=== PATIENT | male | born 1990 | race Caucasian/White ===

== ENCOUNTER 2018-05-22 19:32 | Observation (INO) | payer BC ==
[~2018-05-22 19:32] MED LIST: Iopamidol 370 76% 50 ML VIAL FS ONE
[2018-05-22] MEDS ORDERED: Dextrose 5% in Water 1,000 ML IV PRN (21:36)
[2018-05-22] MEDS ORDERED: Dextrose 50% Abboject 50 ML SYRINGE SLOW IVP PRN (21:36)
[2018-05-22] MEDS ORDERED: Ondansetron HCl/PF 4 MG/2 ML Vial IVP PRN (21:42)
[2018-05-22] MEDS ORDERED: Acetaminophen 1,000 MG in Premix Bag 1 BAG IVPB SCH (21:45)
[2018-05-22 22:15] VITALS: BMI 20.7
[2018-05-22] MEDS: Sodium Chloride 0.9% 1,000 ML IV SCH (23:00)
--- NOTE | 2018-05-22 23:08 | CT ---
CT CERVICAL SPINE WITH CORONAL AND SAGITTAL REFORMATIONS: CT THORACIC SPINE WITH CORONAL AND SAGITTAL REFORMATIONS: HISTORY: Neck pain and back pain. The patient was stepped on by a bull. FINDINGS: There are mild degenerative changes of the cervical and thoracic spine. No acute fracture or subluxa tion is identified. There is minimal anterior wedging of the superior endplate of the C6 vertebral b alea, likely chronic. No adjacent soft tissue swelling is seen. There is incomplete fusion of the po sterior arch of C1. These exams were performed with oral contrast. No free air is seen in the mediastinum. No contrast extravasation from the esophagus is noted. There is prominence of the wall of the cervical esophagus , which can be due to incomplete distention or wall thickening. If clinically indicated, endoscopy o r esophagram would be helpful. The visualized lung astudillo are clear. Incidental note is made of nonobstructing bilateral renal calculi. Discussed over the telephone with Dr. Abreu at 10:53 p.m. CODE CR POS: JENNIFER
[2018-05-23 04:02] LABS: #Basophils 0.1 thou/uL (0.0-0.2); #Eosinphils 0.2 thou/uL (0.0-0.7); #Lymphocytes 2.9 thou/uL (1.20-3.40); #Monocytes 0.8 thou/uL (0.11-0.59); #Neutrophils 4.5 thou/uL (1.40-6.50); %Basophils 0.8 % (0.0-1.0); %Eosinophils 2.8 % (0.0-10.0); %Lymphocytes 33.7 % (21.0-51.0); %Monocytes 9.3 % (0.0-10.0); %Neutrophils 53.4 % (42.0-75.0); Hemoglobin 15.3 g/dL (14.0-18.0); Mean Corpuscular Hemoglobin 31.7 pg (27.0-31.0); Mean Corpuscular Volume 93.1 fL (78.0-98.0); Mean Platelet Volume 6.9 fL (7.4-10.4); Platelet Count 208 thou/uL (130-400); RBC Distribution Width 12.2 % (11.5-14.5); Red Blood Cell (RBC) Count 4.82 mill/uL (4.70-6.10); White Blood Cell (WBC) Count 8.5 thou/uL (4.8-10.8)
[2018-05-23 04:08] LABS: Anion Gap 12 mmol/L (10-20); BUN (Urea Nitrogen) 8 mg/dL (8.9-20.6); Calc. Creatinine Clearance 126 mL/min (70-130); Calcium 9.2 mg/dL (7.8-10.44); Carbon Dioxide 27 mmol/L (22-29); Chloride 104 mmol/L (98-107); Estimated GFR-MDRD Greater than 90; Glucose 90 mg/dL (70-105); Potassium 3.8 mmol/L (3.5-5.1); Sodium 139 mmol/L (136-145)
--- NOTE | 2018-05-23 04:25 | HP ---
DATE OF ADMISSION: 05/22/2018 ADMITTING PHYSICIAN: Dr. Abreu CONSULTING PHYSICIAN: Dr. Montesinos. 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 He co ntinued his regular activities. Today, he went to a chiropractor due to neck pain. She told him she thought he had a fractured jaw and sent him to an outside [facility] ER. At the [facility] ER, he had a workup which identified a cervical spine fracture, possible fracture of the nasal bone, poss ible esophageal thickening, possible T1 fracture, and soft tissue contusion. He was placed in the [facility] collar and transferred to [place] for higher level of care. [facility] by Trauma Services. Dr. Montesinos, Neurosurgery was consulted. PAST MEDICAL HISTORY: None. PAST SURGICAL HISTORY: Left orthopedic knee surgery. SOCIAL HISTORY: Tobacco, half pack of cigarettes a day. Alcohol, occasionally. Drugs, none. CURRENT MEDICATIONS: None. ALLERGIES: No known drug allergies. LABORATORY DATA: CBC: WBC 9.8, RBC 5.56, hemoglobin 17.2, hematocrit 49.6, platelets 213. Chemistr y: Sodium 136, potassium 3.5, chloride 100, glucose 108, calcium 9.6, BUN 8, creatinine 1.0. REVIEW OF SYSTEMS: CONSTITUTIONAL: Patient denies chills, fever, recent weight loss or generalized malaise. HEENT: Complains of swelling and pain to the right mandible area, abrasions to right side of neck, swelling to right side of neck. Posterior neck tenderness and difficulty swallowing. CARDI OVASCULAR: Denies chest pain, palpitations or syncope. RESPIRATORY: Denies cough, shortness of breath or chest pain. GASTROINTESTINAL: Denies abdominal p ain, nausea, vomiting, diarrhea or constipation. GENITOURINARY: Denies dysuria or hematuria. MUSCU LOSKELETAL: Denies pain or injury. SKIN: Denies rash or skin changes. 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 HEME/LYMPHATIC: Denies abnorma l bleeding. PHYSICAL EXAMINATION: CONSTITUTIONAL: Well-nourished, well-developed male lying in bed in no acute distress. HEENT: Cervical collar in place. Tenderness to palpation in midline cervical spine. Swelling to ri ght side of the neck with abrasion on skin. No active bleeding. Trachea midline. Pupils equal, rou nd and reactive. PULMONARY: Bilateral breath sounds clear. No respiratory distress. Chest movement symmetrical. CARDIOVASCULAR: Regular rate and rhythm. Heart sounds normal. ABDOMEN: Soft, nontender, nondistended. Pelvis stable. EXTREMITIES: Moves all extremities. Cap refill brisk. 2+ pulses. Neurovascular intact. NEUROLOGIC: GCS 15. Awake, alert and oriented x3. Strength 5/5 in all extremities. No focal defic it noted. ASSESSMENT: 1. Blunt trauma to neck status post stepped on by a bull. 2. Soft tissue contusion right neck and mandibular area. 3. C-spine fracture identified at outside facility. 4. Acute traumatic pain. PLAN: 1. Repeat C and T-spine. 2. Obtain a swallow study to evaluate swallowing difficulty. 3. N.p.o., IV fluids, IV analgesia. 4. Dr. Montesinos, Neurosurgery, consulted. Appreciate recommendations. 5. [place] collar at all times. 6. Pepcid for gastritis prophylaxis. 7. SCDs for DVT prophylaxis. Patient was reviewed with Dr. Abreu at time of admission. Dr. Abreu agrees with plan.
[2018-05-23 04:32] VITALS: TEMP 97.8
[2018-05-23] MEDS: Sodium Chloride 0.9% 1,000 ML IV SCH (06:43)
[2018-05-23 07:53] VITALS: BP 144/89
[2018-05-23] MEDS ORDERED: Famotidine/PF 20 mg/2ml Vial SLOW IVP SCH (09:00)
--- NOTE | 2018-05-23 09:00 | CON ---
DATE OF CONSULTATION: 05/23/2018 This is a 50 minute consult, greater than 50% of the time was spent counseling and coordinating ty nt's care. The remainder of the exam was spent reviewing the patient's medical records and appropria te imaging studies. CHIEF COMPLAINT: Status post being stepped on by a bull with right-sided neck pain. HISTORY OF PRESENT ILLNESS: Mr. Grant is a 27-year-old male who was involved in a trauma in which he was riding a bull and was bucked off. The bull stepped on the right lateral aspect of the patient 's neck. He began to experience immediate swallowing difficulties well as posterior neck pain. He w as seen [facility] and was later transferred to [facility] for high er acuity of care. In relation to Neurosurgery, the patient notes significant tenderness to palpatio n into the posterior cervical spine and some radiation of pain into the right scapula. He has not no ticed any weakness in either of the extremities. He denies dropping objects more frequently, fine mo tor incoordination or burning in the hands. He states overall today he is feeling better. Review of patient's cervical and thoracic spine CT show no concerning acute fracture. No prevertebral thickne ss or obvious traumatic injuries. PHYSICAL EXAMINATION: The patient is awake, alert, and appropriate. GCS is 15. He is up walking to the bathroom to brush his teeth. He is wearing a well-fitting [place] collar. He has significant ten derness to palpation in the posterior aspect of the cervical spine. He has full strength in the bila teral upper and bilateral lower extremities with no worrisome myelopathic features on exam. He walks with a non-antalgic gait. IMPRESSION: Status post trauma involving a bull, now with posterior neck pain. PLAN: I discussed the patient's case and imaging with Dr. Montesinos. At this time, there is no role fo r neurosurgical intervention as far as the surgery is concerned. Given the significant amount of ten derness in the posterior aspect of the cervical spine, he may have some ligamentous injury versus whi plash versus cervical neck strain. Nonetheless, I would like him to wear his collar at all times. I will order a [place] collar for showers. From our standpoint, the patient is neurologically stable. We will set up a followup appointment in the next 10-14 days with upright cervical AP flexion and e xtension x-rays. The patient's mother was updated at bedside. They understand to call the office wi th questions or concerns or changes in patient's neurologic exam, otherwise they will follow up as sc heduled on an outpatient basis. Again, from Neurosurgery standpoint, the patient is stable for disch arge.
[2018-05-23] MEDS ORDERED: Acetaminophen 500 MG TAB PO PRN (09:29)
[2018-05-23] MEDS ORDERED: Ibuprofen 800 MG TAB PO PRN (09:29)
--- NOTE | 2018-05-23 11:39 | DIS ---
DATE OF ADMISSION: 05/22/2018 DATE OF DISCHARGE: 05/23/2018 ADMITTING PHYSICIAN: Dr. Abreu. DISCHARGING PHYSICIAN: Dr. Jose Logan. ADMITTING DIAGNOSES: 1. Blunt trauma to the neck. The patient was stepped on by a bull. 2. Cervical spine fracture. DISCHARGE DIAGNOSES: 1. Blunt trauma to the neck. The patient was stepped on by a bull. 2. Cervical spine fracture. CONSULTANTS: Dr. Hemal Montesinos with Neurosurgery. 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 He was seen in the [facility] where a CT scan of the cer vical spine was obtained, which was suspicious for cervical spine fracture. The patient was transfer red to [facility]. The patient was evaluated by the Trauma Team as well as a Neurosurgical servi ce. Prior CT scan of the cervical spine revealed superior endplate C6 vertebral body fracture. The patient on examination was still having cervical spine pain in the midline. His cervical spine was t herefore maintained in a C-collar at the recommendation of Neurosurgery. No surgical intervention wa s warranted. The patient has done well during this observation. He ambulates with minimum difficult y. He has 5/5 muscle strength in both upper and lower extremities bilaterally. [place] coma scale i s 15. This morning, he was found without his C-collar against advice. He was again advised to maint ain the C-collar as recommended by Neurosurgery. DISCHARGE INSTRUCTIONS: He will be discharged home today with the following instructions: 1. He follows up with Neurosurgery in 10-14 days. 2. He is advised to wear the C-collar at all times. To this end, he is provided with an [place] colla r, which he wears most of the time. This will be changed with a [place] collar for showers. 3. He requires no further follow up from this Trauma Surgery standpoint except for as needed. 4. He may take Tylenol 1000 mg p.o. q.6 hours p.r.n. pain and alternating this with ibuprofen 800 mg p.o. q.8 hours p.r.n. pain. The above instructions were given to the patient, who indicates understanding of the information give n. I have answered his questions.
== END 2018-05-23 10:49 | disposition home or self-care (01) ==
LOC: INTOOBSV 20:15 → SJJU 20:15
PROVIDERS: ADMIT Surgery; ATTEND Surgery
DX: S12.9XXA Fracture of neck, unspecified, initial encounter (principal); S10.83XA Contusion of other specified part of neck, initial encounter; S00.83XA Contusion of other part of head, initial encounter; G89.11 Acute pain due to trauma; F17.210 Nicotine dependence, cigarettes, uncomplicated; W55.29XA Other contact with cow, initial encounter; Y99.0 Civilian activity done for income or pay
CPT/HCPCS: 36415; 72125; 72128; 80048; 85025; 96374; 96375; 96376; G0378; J0131; J2270; J2405

== ENCOUNTER 2019-06-13 10:54 | Emergency (ER) | payer BC ==
[2019-06-13] MEDS ORDERED: Fentanyl 100 MCG/2 ML VIAL ONE (11:11)
[2019-06-13] MEDS ORDERED: Ondansetron PF 4 MG/2 ML Vial ONE (11:11)
[2019-06-13 11:29] LABS: #Basophils 0.1 thou/uL (0.0-0.2); #Eosinphils 0.4 thou/uL (0.0-0.7); #Lymphocytes 2.6 thou/uL (1.20-3.40); #Monocytes 0.9 thou/uL (0.11-0.59); #Neutrophils 7.9 thou/uL (1.40-6.50); %Basophils 0.8 % (0.0-1.0); %Eosinophils 3.3 % (0.0-10.0); %Monocytes 7.3 % (0.0-10.0); %Neutrophils 66.6 % (42.0-75.0); Hemoglobin 16.1 g/dL (14.0-18.0); Mean Corpuscular HGB CONC 33.5 g/dL (32.0-36.0); Mean Corpuscular Hemoglobin 29.9 pg (27.0-31.0); Mean Corpuscular Volume 89.2 fL (78.0-98.0); Mean Platelet Volume 7.5 fL (7.4-10.4); Platelet Count 281 thou/uL (130-400); RBC Distribution Width 11.9 % (11.5-14.5); Red Blood Cell (RBC) Count 5.39 mill/uL (4.70-6.10); White Blood Cell (WBC) Count 11.8 thou/uL (4.8-10.8)
[2019-06-13 11:50] LABS: ALT (SGPT) 12 U/L (8-55); AST (SGOT) 14 U/L (5-34); Albumin 4.5 g/dL (3.5-5.0); Alkaline Phosphatase 77 U/L (40-150); Anion Gap 15 mmol/L (10-20); BUN (Urea Nitrogen) 14 mg/dL (8.9-20.6); Bilirubin, Total 0.4 mg/dL (0.2-1.2); Calc. Creatinine Clearance 0 mL/min (70-130); Calcium 9.6 mg/dL (7.8-10.44); Carbon Dioxide 20 mmol/L (22-29); Chloride 104 mmol/L (98-107); Estimated GFR-MDRD 84; Globulin 2.6 g/dL (2.4-3.5); Glucose 120 mg/dL (70-105); Lipase 12 U/L (8-78); Potassium 3.7 mmol/L (3.5-5.1); Protein, Total 7.1 g/dL (6.0-8.3); Sodium 135 mmol/L (136-145)
--- NOTE | 2019-06-13 13:13 | CT ---
EXAM: CT ABDOMEN AND PELVIS HISTORY: Sudden onset right lower quadrant pain. COMPARISON: None. Procedure: Multiple contiguous axial images were obtained and a CT of the abdomen and pelvis with IV contrast. C oronal reformats were performed. FINDINGS: Lower Chest: within normal limits. Vessels: Normal caliber aorta Heart: Normal heart size Abdomen: Portal vein:Patent Gallbladder: No calcified gallstones. Normal caliber wall. Liver: within normal limits. Pancreas: within normal limits. Spleen: within normal limits. Adrenals: within normal limits. Kidneys: Symmetric enhancement the kidneys. Multiple nonobstructing calculi in the left renal pelvis. [place] Tender left renal pelvic calculus measures 0.4 cm. Moderate right-sided obstructive uropathy. There are multiple calcifications in the proximal to mid right ureter. [place] calcu li measure 0.5 and 0.7 cm. The distal right ureter is decompressed. Peritoneum: No ascites or free air, no fluid collection. Bowel: Limited evaluation due to technique. No evidence of bowel obstruction. Ileocecal junction is u nremarkable. Normal caliber air-filled appendix. Unremarkable colon. Mesentery and Retroperitoneum: No enlarged mesenteric or retroperitoneal lymph nodes. Abdominal Wall: within normal limits. Pelvis: Reproductive Organs: Possible small right-sided hydrocele, incompletely evaluated. Pelvis: within normal limits. Bladder: within normal limits. Bones: within normal limits. IMPRESSION: 1. Moderate right-sided obstructive uropathy secondary to multiple calculi in the proximal to mid rig ht ureter. Urology consultation is recommended 2. Nonobstructing calculi in the left renal pelvis.
[2019-06-13] MEDS ORDERED: Ketorolac Tromethamine 30 MG/ML VIAL ONE (13:41)
[2019-06-13] MEDS ORDERED: Iopamidol 370 76% 50 ML VIAL FS ONE (13:57)
[2019-06-13] MEDS ORDERED: ISOVUE-370 76%-LOCM 1 ML ONE (13:57)
[2019-06-13 15:25] LABS: Bacteria/HPF None Seen HPF (None Seen); Bilirubin Negative (Negative); Blood, Urine 2+ (Negative); Clarity Clear (Clear); Glucose, Urine (Dipstick) Normal (Negative); Leukocyte 75 Leu/uL (Negative); Nitrite Negative (Negative); Protein, Urine (Dipstick) 10 mg/dL (Neg-Trace); RBC/HPF Greater than 50 HPF (0-3); Squamous Epithelial None Seen HPF (0-3); Urobilinogen Normal mg/dL (Less than 2)
== END 2019-06-13 16:10 | disposition home or self-care (01) ==
LOC: ERS 10:54
DX: N20.1 Calculus of ureter (principal)
CPT/HCPCS: 74177; 80053; 81003; 81015; 83690; 85025; 87086; 96361; 96374; 96375; J1885; J2405; J3010; Q9966; Q9967

== ENCOUNTER 2019-07-17 07:25 | Emergency (ER) | payer BC, SELFPAY ==
[2019-07-17] MEDS ORDERED: Fentanyl 100 MCG/2 ML VIAL ONE (07:45)
[2019-07-17] MEDS ORDERED: Ketorolac Tromethamine 30 MG/ML VIAL ONE (07:46)
[2019-07-17] MEDS ORDERED: Ondansetron PF 4 MG/2 ML Vial ONE (07:46)
[2019-07-17 07:48] LABS: #Basophils 0.1 thou/uL (0.0-0.2); #Eosinphils 0.2 thou/uL (0.0-0.7); #Lymphocytes 2.1 thou/uL (1.20-3.40); #Monocytes 0.7 thou/uL (0.11-0.59); #Neutrophils 10.2 thou/uL (1.40-6.50); %Basophils 0.6 % (0.0-1.0); %Eosinophils 1.5 % (0.0-10.0); %Lymphocytes 15.9 % (21.0-51.0); Mean Corpuscular HGB CONC 34.3 g/dL (32.0-36.0); Mean Corpuscular Hemoglobin 31.1 pg (27.0-31.0); Mean Corpuscular Volume 90.5 fL (78.0-98.0); Mean Platelet Volume 7.1 fL (7.4-10.4); Platelet Count 273 thou/uL (130-400); RBC Distribution Width 11.6 % (11.5-14.5); Red Blood Cell (RBC) Count 5.14 mill/uL (4.70-6.10); White Blood Cell (WBC) Count 13.2 thou/uL (4.8-10.8)
[2019-07-17 08:28] LABS: ALT (SGPT) 13 U/L (8-55); AST (SGOT) 23 U/L (5-34); Albumin 4.8 g/dL (3.5-5.0); Alkaline Phosphatase 77 U/L (40-150); Anion Gap 14 mmol/L (10-20); BUN (Urea Nitrogen) 12 mg/dL (8.9-20.6); Bilirubin, Total 0.6 mg/dL (0.2-1.2); CK (CPK) 541 U/L (30-200); Calc. Creatinine Clearance 0 mL/min (70-130); Calcium 10.1 mg/dL (7.8-10.44); Carbon Dioxide 25 mmol/L (22-29); Chloride 99 mmol/L (98-107); Estimated GFR-MDRD 67; Globulin 2.7 g/dL (2.4-3.5); Glucose 112 mg/dL (70-105); Lipase 9 U/L (8-78); Potassium 3.8 mmol/L (3.5-5.1); Protein, Total 7.5 g/dL (6.0-8.3); Sodium 134 mmol/L (136-145)
--- NOTE | 2019-07-17 09:01 | RAD ---
ABDOMEN ONE VIEW: HISTORY: Right-sided flank pain. COMPARISON: CT abdomen and pelvis from 06/13/2019. FINDINGS: Several left renal calculi are noted. There is at least one probable calculus overlying the right L4 transverse process region. On the previous study there were two right-sided ureteral calculi. IMPRESSION: 1. Evidence for right sided ureteral calculus at L4. 2. A second calculus is not definitely seen on this study but may overlie the sacrum and by obscured. 3. Several nonobstructing left renal calculi. 4. No large or small bowel obstruction or overt free air. POS: OFF
[2019-07-17 12:48] LABS: Bilirubin Negative (Negative); Blood, Urine Moderate (Negative); Glucose, Urine (Dipstick) Negative (Negative); Leukocyte Small (Negative); Nitrite Negative (Negative); Protein, Urine (Dipstick) 30 mg/dL (Neg-Trace); Urobilinogen 0.2 mg/dL (Less than 2)
[2019-07-17 12:49] LABS: Clarity Clear (Clear)
[2019-07-17 12:53] LABS: Mucous/LPF Rare LPF (<2+); RBC/HPF Greater than 50 HPF (0-3); Squamous Epithelial 0-3 HPF (0-3); WBC/HPF Greater than 50 HPF (0-3)
[2019-07-17 13:02] LABS: Bacteria/HPF None Seen HPF (None Seen); Calcium Oxalate Crystals 1+ HPF (None Seen); Sperm/HPF Rare HPF (None Seen)
--- NOTE | 2019-07-17 13:47 | CT ---
CT ABDOMEN AND PELVIS: 07/17/2019 PROVIDED CLINICAL HISTORY: Kidney stones with pain. COMPARISON: 06/13/2019 FINDINGS: The visualized lung bases are free of significant opacity. Multiple small, nonobstructing, left-sided renal calculi are redemonstrated, similar to the prior sherie dy. There is severe right hydronephrosis and right hydroureter on the basis of a 7 mm ureteral calcul us at the level of L3-L4 and a 7 to 8 mm calculus at the level of L5. The more distal calculus has pr ogressed slightly distally with respect to the prior examination. The more proximal calculus appears not significantly changed in position. The solid abdominal organs are suboptimally evaluated in the absence of IV contrast material but demo nstrate an otherwise unremarkable unenhanced CT appearance. There is no bowel dilatation, inflammatory fat stranding, free fluid or free air apparent. The osseous structures demonstrate no concerning lytic or blastic lesions. IMPRESSION: 1. Obstructing right ureteral calculi with minimal to no change with respect to 06/13/2019. 2. Severe right hydroureteronephrosis. 3. Nonobstructing left nephrolithiasis. POS: TPC
== END 2019-07-17 15:12 | disposition home or self-care (01) ==
LOC: ERS 07:25
DX: N13.2 Hydronephrosis with renal and ureteral calculous obstruction (principal); F17.210 Nicotine dependence, cigarettes, uncomplicated
CPT/HCPCS: 74018; 74176; 80053; 81003; 81015; 82550; 83690; 85025; 87086; 96361; 96374; 96375; J1885; J2405; J3010

== ENCOUNTER 2019-09-09 03:42 | Emergency (ER) | payer SELFPAY ==
[2019-09-09] MEDS ORDERED: Ondansetron ODT 4 MG TAB ONE (03:51)
[2019-09-09] MEDS ORDERED: Morphine 4 MG/ML VIAL ONE (04:10)
[2019-09-09] MEDS ORDERED: Ondansetron PF 4 MG/2 ML Vial ONE (04:12)
[2019-09-09] MEDS ORDERED: Ketorolac Tromethamine 30 MG/ML VIAL ONE (04:25)
[2019-09-09 04:37] LABS: #Basophils 0.1 thou/uL (0.0-0.2); #Eosinphils 0.4 thou/uL (0.0-0.7); #Lymphocytes 1.9 thou/uL (1.20-3.40); #Monocytes 0.6 thou/uL (0.11-0.59); #Neutrophils 4.8 thou/uL (1.40-6.50); %Eosinophils 5.4 % (0.0-10.0); %Lymphocytes 24.7 % (21.0-51.0); %Monocytes 8.1 % (0.0-10.0); %Neutrophils 60.8 % (42.0-75.0); Hemoglobin 14.7 g/dL (14.0-18.0); Mean Corpuscular HGB CONC 33.9 g/dL (32.0-36.0); Mean Corpuscular Hemoglobin 30.8 pg (27.0-31.0); Mean Platelet Volume 7.5 fL (7.4-10.4); Platelet Count 245 thou/uL (130-400); RBC Distribution Width 11.3 % (11.5-14.5); Red Blood Cell (RBC) Count 4.77 mill/uL (4.70-6.10); White Blood Cell (WBC) Count 7.9 thou/uL (4.8-10.8)
[2019-09-09 05:02] LABS: ALT (SGPT) 16 U/L (8-55); AST (SGOT) 18 U/L (5-34); Albumin 4.4 g/dL (3.5-5.0); Alkaline Phosphatase 76 U/L (40-110); Anion Gap 9 mmol/L (10-20); BUN (Urea Nitrogen) 7 mg/dL (8.9-20.6); Bilirubin, Total 0.4 mg/dL (0.2-1.2); Calc. Creatinine Clearance 0 mL/min (70-130); Calcium 9.5 mg/dL (7.8-10.44); Carbon Dioxide 29 mmol/L (22-29); Chloride 101 mmol/L (98-107); Estimated GFR-MDRD 87; Globulin 2.3 g/dL (2.4-3.5); Glucose 82 mg/dL (70-105); Lipase 19 U/L (8-78); Potassium 3.3 mmol/L (3.5-5.1); Protein, Total 6.7 g/dL (6.0-8.3); Sodium 136 mmol/L (136-145)
[2019-09-09] MEDS ORDERED: Naproxen 500 MG TAB ONE (05:39)
[2019-09-09] MEDS ORDERED: HYDROcodone/Acetaminophen 5/325 mg Tablet ONE (05:39)
--- NOTE | 2019-09-09 08:33 | CT ---
PRELIMINARY REPORT/[facility]/EMERGENCY AFTER HOURS PROCEDURE: PROCEDURE INFORMATION: Exam: CT Abdomen And Pelvis Without Contrast Exam date and time: 09/09/2019 4:50 AM Clinical history: 28 years old, male; Abdominal pain; Patient HX: Er 1. PT states "i have kidney ston es" PT states he cannot urinate C/O right flank pain and lower abd pain C/O nausea. TECHNIQUE: Imaging protocol: Computed tomography of the abdomen and pelvis without contrast. COMPARISON: No relevant prior studies available. FINDINGS: Liver: There are no focal liver lesions identified. Gallbladder and bile ducts: The gallbladder is normal. There is no evidence of biliary ductal dilatio n. Pancreas: The pancreas appears normal. No ductal dilatation. Spleen: The spleen is normal. Adrenals: The adrenal glands are normal. Kidneys and ureters: There is a 7 x 4 x 10 mm and a 8 x 6 x 11 mm calculus within the proximal and di stal right ureter with associated severe right hydroureteronephrosis. There are punctate left renal p elvic calcifications as well. Stomach and bowel: The stomach is normal. The duodenum is unremarkable. There is no evidence of intes tinal perforation or obstruction. Appendix: No evidence of appendicitis. Intraperitoneal space: Unremarkable. No free air. No significant fluid collection. Vasculature: Unremarkable. No abdominal aortic aneurysm. Lymph nodes: Unremarkable. No enlarged lymph nodes. Bladder: The bladder is normal. Reproductive: The prostate gland and seminal vesicles are normal. Bones/joints: Unremarkable. No acute fracture. Soft tissues: Unremarkable. Other findings: There is an irregular fluid collection consistent in appearance with an abscess. IMPRESSION: There is a 7 x 4 x 10 mm and a 8 x 6 x 11 mm calculus within the proximal and distal right ureter wit h associated severe right hydroureteronephrosis. Thank you for allowing us to participate in the care of your patient. Dictated and Authenticated by: Diallo Siu MD 09/09/2019 5:07 AM Central Time ([place] & [place]) FINAL REPORT ABDOMEN CT WITHOUT CONTRAST PELVIC CT WITHOUT CONTRAST: HISTORY: Known renal calculi. Pain. COMPARISON: 07/17/2019. FINDINGS: This report is in agreement with the preliminary report by [facility]. Right-sided hydronephrosis involving the intra- and extrarenal collecting system secondary to 2 separate ureteral calculi as described in the preliminary report by [facility]. The degree of hydroureteral nephrosis is similar to the previous exa mination. Additional nonobstructing calcifications in the left intrarenal collecting system are note d. POS: JENNIFER
== END 2019-09-09 06:40 | disposition home or self-care (01) ==
LOC: ERS 03:42
DX: N13.2 Hydronephrosis with renal and ureteral calculous obstruction (principal); Z87.442 Personal history of urinary calculi; F17.210 Nicotine dependence, cigarettes, uncomplicated; Z79.891 Long term (current) use of opiate analgesic
CPT/HCPCS: 36415; 74176; 80053; 83690; 85025; 96361; 96374; 96375; J1885; J2270; J2405; Q0162

== ENCOUNTER 2021-04-22 18:15 | Inpatient (IN) | payer OTHER, SELFPAY ==
[2021-04-22] MEDS ORDERED: Morphine 4 MG/ML VIAL ONE (19:28)
[2021-04-22] MEDS ORDERED: Ondansetron PF 4 MG/2 ML Vial ONE (19:32)
[2021-04-22] MEDS ORDERED: Ketamine 50 MG/ML (10ML VIAL) ONE (20:30)
[2021-04-22] MEDS ORDERED: Midazolam HCl 2 mg/2 ml Vial ONE (21:05)
[2021-04-22] MEDS ORDERED: Morphine 4 MG/ML VIAL SLOW IVP PRN ×2 (22:35)
[2021-04-22] MEDS ORDERED: Ondansetron ODT 4 MG TAB SL PRN (22:45)
[2021-04-22] MEDS ORDERED: Ondansetron PF 4 MG/2 ML Vial IVP PRN (22:45)
[2021-04-22] MEDS ORDERED: Lactated Ringer's 1,000 ML IV SCH (22:45)
[2021-04-22 23:01] VITALS: BMI 22.1
[2021-04-22] MEDS ORDERED: hydrALAZINE 20 MG/ML VIAL SLOW IVP PRN (23:47)
[2021-04-22] MEDS ORDERED: Morphine 2 MG/ML VIAL SLOW IVP PRN (23:49)
[2021-04-22] MEDS ORDERED: Cyclobenzaprine 10 MG TAB PO PRN (23:49)
[2021-04-22] MEDS ORDERED: traMADol HCl 50 MG TAB PO PRN (23:49)
[2021-04-23] MEDS ORDERED: Ibuprofen 200 MG TAB PO PRN (00:01)
[2021-04-23] MEDS: Acetaminophen 325 MG TAB PO SCH ×5 (01:32→23:50)
[2021-04-23] MEDS: traMADol HCl 50 MG TAB PO SCH ×3 (01:33→11:33)
[2021-04-23] MEDS: Sodium Chloride 0.9% 1,000 ML IV SCH ×3 (01:34→21:31)
[2021-04-23] MEDS ORDERED: Calcium Carbonate 500 MG ChewTAB PO SCH (02:00)
[2021-04-23 06:46] LABS: #Basophils 0.1 thou/uL (0.0-0.2); #Eosinphils 0.8 thou/uL (0.0-0.7); #Lymphocytes 3.9 thou/uL (1.20-3.40); #Neutrophils 5.7 thou/uL (1.40-6.50); %Basophils 0.7 % (0.0-1.0); %Eosinophils 6.6 % (0.0-10.0); %Lymphocytes 33.8 % (21.0-51.0); %Monocytes 8.8 % (0.0-10.0); %Neutrophils 50.1 % (42.0-75.0); Hemoglobin 14.3 g/dL (14.0-18.0); Mean Corpuscular HGB CONC 33.8 g/dL (32.0-36.0); Mean Corpuscular Hemoglobin 31.1 pg (27.0-31.0); Mean Corpuscular Volume 92.2 fL (78.0-98.0); Mean Platelet Volume 7.8 fL (7.4-10.4); Platelet Count 247 thou/uL (130-400); RBC Distribution Width 11.4 % (11.5-14.5); White Blood Cell (WBC) Count 11.4 thou/uL (4.8-10.8)
[2021-04-23 07:10] LABS: Anion Gap 12 mmol/L (10-20); BUN (Urea Nitrogen) 10 mg/dL (8.9-20.6); Calc. Creatinine Clearance 103 mL/min (70-130); Calcium 8.6 mg/dL (7.8-10.44); Carbon Dioxide 26 mmol/L (22-29); Chloride 105 mmol/L (98-107); Glucose 82 mg/dL (70-105); Potassium 4.2 mmol/L (3.5-5.1); Sodium 139 mmol/L (136-145)
[2021-04-23 07:11] LABS: INR-International Normal Ratio 0.9; PTT 28.4 sec (22.9-36.1); Prothrombin Time 12.6 sec (12.0-14.7)
[2021-04-23] MEDS ORDERED: Clindamycin/D5W 900 MG in Premix Bag 1 BAG IVPB SCH (07:15)
[2021-04-23] MEDS: Gabapentin 300 MG CAP PO SCH ×3 (08:47→21:31)
[2021-04-23 09:03] LABS: SARS-CoV-2 NAA Rapid Test Not Detected (NotDetected)
[2021-04-23] MEDS: Polyethylene Glycol 3350 17 GM Packet PO SCH (09:49)
[2021-04-23] MEDS ORDERED: Clindamycin/D5W 900 mg/50 ml Premix Bag ONE (14:03)
[2021-04-23] MEDS ORDERED: Midazolam HCl 2 mg/2 ml Vial ONE (14:04)
[2021-04-23] MEDS ORDERED: Fentanyl 100 MCG/2 ML VIAL ONE ×2 (14:04→14:36)
[2021-04-23] MEDS ORDERED: Ondansetron PF 4 MG/2 ML Vial ONE (14:45)
[2021-04-23] MEDS ORDERED: Bupivacaine PF 0.5% 30 ML VIAL ONE (14:45)
[2021-04-23] MEDS ORDERED: Dexamethasone 20 MG/5 ML VIAL ONE (14:45)
[2021-04-23] MEDS ORDERED: PROPOFOL 200 MG/20 ML VIAL ONE (14:45)
[2021-04-23] MEDS ORDERED: Ketorolac Tromethamine 30 MG/ML VIAL ONE (14:45)
[2021-04-23] MEDS ORDERED: Lidocaine 1% PF 5 ML VIAL ONE (14:45)
[2021-04-23] MEDS ORDERED: Fentanyl 100 MCG/2 ML VIAL IV PRN (14:48)
[2021-04-23] MEDS ORDERED: Promethazine HCl 25 MG/ML VIAL IM PRN ×2 (15:00→16:05)
[2021-04-23] MEDS ORDERED: Ketorolac Tromethamine 30 MG/ML VIAL IVP PRN (15:00)
[2021-04-23] MEDS ORDERED: Zolpidem Tartrate 5 MG TAB PO PRN (15:00)
[2021-04-23] MEDS ORDERED: Ropivacaine 0.2% 550 ML 550 ML NERVE BLCK SCH (15:00)
[2021-04-23] MEDS ORDERED: traMADol HCl 50 MG TAB PO PRN ×2 (15:00)
[2021-04-23] MEDS ORDERED: HYDROcodone/Acetaminophen 10/325 mg Tablet PO PRN ×2 (15:00)
[2021-04-23] MEDS ORDERED: Ondansetron PF 4 MG/2 ML Vial IVP PRN (15:00)
[2021-04-23] MEDS ORDERED: PACU-Morphine 4MG/ML VIAL SLOW IVP PRN (16:05)
[2021-04-23] MEDS ORDERED: Promethazine HCl 25 MG/ML VIAL IVPB PRN (16:05)
[2021-04-23] MEDS ORDERED: HYDROmorphone 2 MG/ML VIAL SLOW IVP PRN (16:05)
[2021-04-23] MEDS ORDERED: Ondansetron HCl/PF 4 MG/2 ML Vial IVP PRN (16:05)
[2021-04-23] MEDS ORDERED: Gabapentin 100 MG CAP PO SCH (21:30)
[2021-04-23] MEDS: Clindamycin/D5W 900 MG in Premix Bag 1 BAG IVPB SCH (21:54)
[2021-04-24] MEDS: Clindamycin/D5W 900 MG in Premix Bag 1 BAG IVPB SCH (05:11)
[2021-04-24] MEDS: Acetaminophen 325 MG TAB PO SCH (05:11)
[2021-04-24] MEDS: Sodium Chloride 0.9% 1,000 ML IV SCH (05:43)
[2021-04-24 07:33] VITALS: TEMP 97.9
[2021-04-24] MEDS ORDERED: Gabapentin 100 MG CAP PO SCH (09:00)
[2021-04-24] MEDS ORDERED: Ibuprofen 200 MG TAB PO SCH (09:00)
[2021-04-24] MEDS: Polyethylene Glycol 3350 17 GM Packet PO SCH (09:23)
[2021-04-24] MEDS ORDERED: Acetaminophen 325 MG TAB PO SCH (12:00)
[2021-04-24 12:01] VITALS: BP 138/66
== END 2021-04-24 15:00 | disposition home or self-care (01) | DRG 494 ==
LOC: ERS 18:15 → ONC 20:32 → SURG A 04-23 17:24
PROVIDERS: ADMIT Surgery; ATTEND Surgery
PROC: 0QSJ04Z Reposition Right Fibula with Internal Fixation Device, Open Approach (ICD-10-PCS; principal; 2021-04-23)
PROC: 0QSL04Z Reposition Right Tarsal with Internal Fixation Device, Open Approach (ICD-10-PCS; 2021-04-23)
DX: S82.851A Displaced trimalleolar fracture of right lower leg, initial encounter for closed fracture (principal); S82.831A Other fracture of upper and lower end of right fibula, initial encounter for closed fracture; F17.210 Nicotine dependence, cigarettes, uncomplicated; Z88.0 Allergy status to penicillin; V80.010A Animal-rider injured by fall from or being thrown from horse in noncollision accident, initial encounter; Y92.89 Other specified places as the place of occurrence of the external cause
CPT/HCPCS: 27840; 36415; 70486; 76000; 80048; 85025; 85610; 85730; 96374; 96375; 99152; 99153; A4306; C1713; J1100; J1885; J2250; J2270; J2405; J2704; J2795; J3010; J3490; S0020; U0002; U0003; U0005

== ENCOUNTER 2022-12-21 16:09 | Outpatient (CLI) | payer OTHER ==
[2022-12-21 18:03] LABS: INR-International Normal Ratio 0.9; PTT 26.2 sec (22.0-33.0); Prothrombin Time 9.9 sec (9.5-12.1)
[2022-12-21 18:05] LABS: Anion Gap 16 mmol/L (10-20); BUN (Urea Nitrogen) 21 mg/dL (8.9-20.6); Calc. Creatinine Clearance 0 mL/min (70-130); Calcium 9.9 mg/dL (7.8-10.44); Carbon Dioxide 26 mmol/L (22-29); Chloride 103 mmol/L (98-107); Estimated GFR 98; Glucose 85 mg/dL (70-105); Potassium 4.7 mmol/L (3.5-5.1); Sodium 140 mmol/L (136-145)
[2022-12-21 18:12] LABS: Mean Corpuscular HGB CONC 33.4 g/dL (32.0-36.0); Mean Corpuscular Volume 86.8 fl (81.2-95.1); Mean Platelet Volume 10.8 fl (7.4-10.4); Platelet Count 342 10x3/uL (150-450); Red Blood Cell (RBC) Count 5.52 10x6/uL (4.32-5.72); White Blood Cell (WBC) Count 10.6 10x3/uL (3.5-10.5)
== END 2022-12-21 16:10 | disposition home or self-care (01) ==
LOC: LABBT 16:09
PROVIDERS: ATTEND Urology
DX: Z01.812 Encounter for preprocedural laboratory examination (principal); N20.2 Calculus of kidney with calculus of ureter; Z72.0 Tobacco use
CPT/HCPCS: 80048; 85027; 85610; 85730

== ENCOUNTER 2022-12-22 08:56 | Day surgery (SDC) | payer OTHER, SELFPAY ==
[2022-12-21 16:22] VITALS: BMI 22.1
[2022-12-22] MEDS ORDERED: cefTRIAXone\\ROCEPHIN 1 GM in Sodium Chloride 0.9% 100 ML IVPB SCH (09:15)
[2022-12-22] MEDS ORDERED: Iopamidol 300 61% 100 ML VIAL FS ONE (09:17)
[2022-12-22] MEDS ORDERED: Levofloxacin 500 mg/D5W 100 ml Premix Bag ONE (09:23)
[2022-12-22] MEDS ORDERED: Lidocaine Jelly 2% Urojet 10 ML ONE (09:38)
[2022-12-22] MEDS ORDERED: PROPOFOL 200 MG/20 ML VIAL ONE (09:59)
[2022-12-22] MEDS ORDERED: Lidocaine 1% PF 5 ML VIAL ONE ×2 (09:59→13:15)
[2022-12-22] MEDS ORDERED: fentaNYL PF 100 MCG/2 ML SYRINGE ONE (10:12)
[2022-12-22] MEDS ORDERED: Ondansetron PF 4 MG/2 ML Vial ONE (10:54)
[2022-12-22] MEDS ORDERED: Promethazine HCl 25 MG/ML VIAL ONE (11:33)
[2022-12-22] MEDS ORDERED: Fentanyl 100 MCG/2 ML VIAL ONE ×3 (11:50→13:15)
[2022-12-22] MEDS ORDERED: Sodium Bicarbonate 2.5 MEQ/5 ML VIAL ONE (13:15)
[2022-12-22] MEDS ORDERED: Midazolam HCl 2 mg/2 ml Vial ONE (13:15)
[2022-12-22] MEDS ORDERED: Ketorolac Tromethamine 30 MG/ML VIAL ONE (14:25)
[2022-12-22] MEDS ORDERED: Phenazopyridine HCl 100 MG TAB ONE (14:43)
== END 2022-12-22 15:35 | disposition home or self-care (01) ==
LOC: SDC 08:56
PROVIDERS: ATTEND Urology
PROC: 0T788DZ Dilation of Bilateral Ureters with Intraluminal Device, Via Natural or Artificial Opening Endoscopic (ICD-10-PCS; principal; 2022-12-22)
DX: N13.2 Hydronephrosis with renal and ureteral calculous obstruction (principal); N48.89 Other specified disorders of penis; F17.200 Nicotine dependence, unspecified, uncomplicated; I10 Essential (primary) hypertension; Z88.0 Allergy status to penicillin
CPT/HCPCS: 50430; 74018; 74420; C2617; J0696; J1885; J1956; J2001; J2250; J2405; J2550; J2704; J3010; J3490

== ENCOUNTER 2022-12-24 12:14 | Outpatient (CLI) | payer OTHER ==
[2022-12-24 13:35] LABS: Hemoglobin 14.5 g/dL (13.5-17.5); Mean Corpuscular HGB CONC 32.2 g/dL (32.0-36.0); Mean Corpuscular Hemoglobin 28.9 pg (27.0-33.0); Mean Corpuscular Volume 89.6 fl (81.2-95.1); Mean Platelet Volume 10.3 fl (7.4-10.4); Platelet Count 289 10x3/uL (150-450); RBC Distribution Width 12.7 % (11.5-14.5); Red Blood Cell (RBC) Count 5.02 10x6/uL (4.32-5.72)
[2022-12-24 13:57] LABS: INR-International Normal Ratio 0.9; PTT 25.8 sec (22.0-33.0)
[2022-12-24 14:04] LABS: Anion Gap 14 mmol/L (10-20); BUN (Urea Nitrogen) 12 mg/dL (8.9-20.6); Calc. Creatinine Clearance 0 mL/min (70-130); Calcium 9.2 mg/dL (7.8-10.44); Carbon Dioxide 27 mmol/L (22-29); Chloride 104 mmol/L (98-107); Estimated GFR 83; Glucose 135 mg/dL (70-105); Potassium 4.4 mmol/L (3.5-5.1); Sodium 141 mmol/L (136-145)
== END 2022-12-24 12:15 | disposition home or self-care (01) ==
LOC: LABBT 12:14
PROVIDERS: ATTEND Urology
DX: Z01.812 Encounter for preprocedural laboratory examination (principal); N20.2 Calculus of kidney with calculus of ureter; N48.9 Disorder of penis, unspecified; Z72.0 Tobacco use
CPT/HCPCS: 80048; 85027; 85610; 85730

== ENCOUNTER 2022-12-29 07:04 | Day surgery (SDC) | payer OTHER ==
[2022-12-28 09:59] VITALS: BMI 28.4
[2022-12-29] MEDS ORDERED: Levofloxacin 500 mg/D5W 100 ml Premix Bag ONE (08:06)
[2022-12-29] MEDS ORDERED: fentaNYL PF 100 MCG/2 ML SYRINGE ONE (09:25)
[2022-12-29] MEDS ORDERED: Iopamidol 15 ML ONE ×2 (09:26)
[2022-12-29] MEDS ORDERED: NEOSTIGMINE 3 MG/3 ML SYR 3 MG/3 ML SYRINGE ONE (09:50)
[2022-12-29] MEDS ORDERED: Dexamethasone 20 MG/5 ML VIAL ONE (09:50)
[2022-12-29] MEDS ORDERED: Lidocaine 1% PF 5 ML VIAL ONE (09:50)
[2022-12-29] MEDS ORDERED: Ketorolac Tromethamine 30 MG/ML VIAL ONE (09:50)
[2022-12-29] MEDS ORDERED: Rocuronium Bromide 10 MG/ML (10ML VIAL) ONE (09:50)
[2022-12-29] MEDS ORDERED: Glycopyrrolate 0.2 MG/ML 5 ML SYRINGE ONE (09:50)
[2022-12-29] MEDS ORDERED: PROPOFOL 200 MG/20 ML VIAL ONE (09:50)
[2022-12-29] MEDS ORDERED: Fentanyl 100 MCG/2 ML VIAL ONE ×2 (10:04→11:51)
[2022-12-29] MEDS ORDERED: Phenazopyridine HCl 100 MG TAB ONE (11:28)
[2022-12-29] MEDS ORDERED: HYDROmorphone 0.5 MG/0.5 ML SYRINGE ONE (11:33)
== END 2022-12-29 14:30 | disposition home or self-care (01) ==
LOC: SDC 07:04
PROVIDERS: ATTEND Urology
PROC: 0TC18ZZ Extirpation of Matter from Left Kidney, Via Natural or Artificial Opening Endoscopic (ICD-10-PCS; principal; 2022-12-29)
PROC: 0TP98DZ Removal of Intraluminal Device from Ureter, Via Natural or Artificial Opening Endoscopic (ICD-10-PCS; principal; 2022-12-29)
PROC: 0T778DZ Dilation of Left Ureter with Intraluminal Device, Via Natural or Artificial Opening Endoscopic (ICD-10-PCS; principal; 2022-12-29)
PROC: 0TC78ZZ Extirpation of Matter from Left Ureter, Via Natural or Artificial Opening Endoscopic (ICD-10-PCS; principal; 2022-12-29)
DX: N13.2 Hydronephrosis with renal and ureteral calculous obstruction (principal); N48.9 Disorder of penis, unspecified; I10 Essential (primary) hypertension; F17.200 Nicotine dependence, unspecified, uncomplicated; Z79.2 Long term (current) use of antibiotics; Z79.899 Other long term (current) drug therapy; Z88.0 Allergy status to penicillin; Z91.018 Allergy to other foods
CPT/HCPCS: 74018; 74420; 82365; 88300; C1747; C1769; C2617; J1170; J1956; J3010; Q9967

== ENCOUNTER 2022-12-31 19:23 | Emergency (ER) | payer OTHER ==
[~2022-12-31 19:23] MED LIST changes: +GASTROGRAFIN 30 ML BOT ONE; +ISOVUE-370 76%-LOCM 1 ML ONE; -Iopamidol 370 76% 50 ML VIAL FS ONE
[2022-12-31] MEDS ORDERED: Ondansetron PF 4 MG/2 ML Vial ONE (21:20)
[2022-12-31] MEDS ORDERED: Ketorolac Tromethamine 30 MG/ML VIAL ONE (21:20)
[2022-12-31 21:50] LABS: #Basophils 0.1 thou/uL (0.0-0.2); #Eosinphils 0.3 thou/uL (0.0-0.7); #Lymphocytes 1.9 thou/uL (1.20-3.40); #Monocytes 0.8 thou/uL (0.11-0.59); #Neutrophils 12.1 thou/uL (1.40-6.50); %Basophils 0.4 % (0.0-1.0); %Eosinophils 2.1 % (0.0-10.0); %Lymphocytes 12.3 % (21.0-51.0); %Monocytes 5.4 % (0.0-10.0); %Neutrophils 79.9 % (42.0-75.0); Hemoglobin 15.4 g/dL (14.0-18.0); Mean Corpuscular HGB CONC 31.8 g/dL (32.0-36.0); Mean Corpuscular Hemoglobin 29.1 pg (27.0-31.0); Mean Corpuscular Volume 91.4 fl (78.0-98.0); Mean Platelet Volume 7.5 fL (7.4-10.4); Platelet Count 316 10x3/uL (130-400); Red Blood Cell (RBC) Count 5.31 mill/uL (4.70-6.10); White Blood Cell (WBC) Count 15.2 10x3/uL (4.8-10.8)
[2022-12-31 22:55] LABS: ALT (SGPT) 20 U/L (8-55); AST (SGOT) 18 U/L (5-34); Albumin 4.4 g/dL (3.5-5.0); Alkaline Phosphatase 81 U/L (40-110); Anion Gap 16 mmol/L (10-20); BUN (Urea Nitrogen) 14 mg/dL (8.9-20.6); Bilirubin, Total 0.4 mg/dL (0.2-1.2); Calc. Creatinine Clearance 0 mL/min (70-130); Calcium 9.3 mg/dL (7.8-10.44); Carbon Dioxide 25 mmol/L (22-29); Chloride 102 mmol/L (98-107); Estimated GFR 88; Globulin 2.8 g/dL (2.4-3.5); Glucose 105 mg/dL (70-105); Protein, Total 7.2 g/dL (6.0-8.3); Sodium 139 mmol/L (136-145)
== END 2023-01-01 01:01 | disposition home or self-care (01) ==
LOC: ERS 19:23
DX: K59.00 Constipation, unspecified (principal); D72.829 Elevated white blood cell count, unspecified; F17.210 Nicotine dependence, cigarettes, uncomplicated
CPT/HCPCS: 36415; 74177; 80053; 83605; 85025; 96374; 96375; J1885; J2405; Q9963; Q9966

== ENCOUNTER 2023-01-18 07:11 | Day surgery (SDC) | payer SELFPAY ==
[2023-01-17 12:34] VITALS: BMI 28.4
[2023-01-18] MEDS ORDERED: Sodium Bicarbonate 2.5 MEQ/5 ML VIAL ONE (07:46)
[2023-01-18] MEDS ORDERED: Midazolam HCl 2 mg/2 ml Vial ONE (07:46)
[2023-01-18] MEDS ORDERED: FENTANYL 50 MCG/ML 1 ML VIAL ONE ×3 (07:46→10:27)
[2023-01-18] MEDS ORDERED: Lidocaine 1% PF 5 ML VIAL ONE (07:47)
[2023-01-18 07:52] VITALS: BP 126/93; TEMP 98.4
[2023-01-18] MEDS ORDERED: FLU VACC QS2022-23(6MO UP)/PF 60 MCG/0.5 ML SYRINGE IM ONE (08:00)
[2023-01-18] MEDS ORDERED: cefTRIAXone\\ROCEPHIN 1 GM in Sodium Chloride 0.9% 100 ML IVPB SCH (08:00)
[2023-01-18] MEDS ORDERED: Ondansetron PF 4 MG/2 ML Vial ONE (08:19)
[2023-01-18] MEDS ORDERED: Iopamidol 300 61% 100 ML VIAL FS ONE (10:30)
== END 2023-01-18 11:21 | disposition short-term general hospital (02) ==
LOC: SPEC 07:11
PROVIDERS: ATTEND Urology
DX: N13.2 Hydronephrosis with renal and ureteral calculous obstruction (principal); N13.4 Hydroureter; I10 Essential (primary) hypertension; F17.200 Nicotine dependence, unspecified, uncomplicated; N48.9 Disorder of penis, unspecified; Z79.2 Long term (current) use of antibiotics; Z79.899 Other long term (current) drug therapy
CPT/HCPCS: 50430; 50433; 74150; J0696; J2250; J2405; J3010; J3490; Q9967

== ENCOUNTER 2023-01-18 13:29 | Outpatient (CLI) | payer SELFPAY ==
[2023-01-18 14:14] LABS: Mean Corpuscular HGB CONC 32.5 g/dL (32.0-36.0); Mean Corpuscular Hemoglobin 28.3 pg (27.0-33.0); Mean Platelet Volume 9.7 fl (7.4-10.4); Platelet Count 336 10x3/uL (150-450); RBC Distribution Width 12.6 % (11.5-14.5); White Blood Cell (WBC) Count 12.1 10x3/uL (3.5-10.5)
[2023-01-18 14:23] LABS: INR-International Normal Ratio 0.9; Prothrombin Time 10.3 sec (9.5-12.1)
[2023-01-18 14:33] LABS: Bilirubin Neg (Negative); Blood, Urine 250 (Negative); Clarity Cloudy (Clear); Glucose, Urine (Dipstick) Normal (Negative); Ketone, Urine Negative (Negative); Leukocyte 500 (Negative); Nitrite Negative (Negative); Protein, Urine (Dipstick) 500 mg/dl (Neg-Trace); Urobilinogen Normal mg/dL (Less than 2)
[2023-01-18 14:37] LABS: RBC/HPF Greater than 50 HPF (0-3)
[2023-01-18 14:39] LABS: Squamous Epithelial 0-3 HPF (0-3)
[2023-01-18 14:42] LABS: Bacteria/HPF 2+ HPF (None Seen); Mucous/LPF 1+ LPF (<2+); WBC/HPF 21-50 HPF (0-3)
[2023-01-18 14:45] LABS: Anion Gap 14 mmol/L (10-20); BUN (Urea Nitrogen) 15 mg/dL (8.9-20.6); Calc. Creatinine Clearance 0 mL/min (70-130); Calcium 9.9 mg/dL (7.8-10.44); Carbon Dioxide 26 mmol/L (22-29); Chloride 104 mmol/L (98-107); Estimated GFR 85; Glucose 133 mg/dL (70-105); Potassium 4.6 mmol/L (3.5-5.1); Sodium 139 mmol/L (136-145)
== END 2023-01-18 13:30 | disposition home or self-care (01) ==
LOC: LABBT 13:29
PROVIDERS: ATTEND Urology
DX: Z01.812 Encounter for preprocedural laboratory examination (principal); N20.2 Calculus of kidney with calculus of ureter; N48.9 Disorder of penis, unspecified; K59.01 Slow transit constipation; Z72.0 Tobacco use; Z98.890 Other specified postprocedural states
CPT/HCPCS: 80048; 81001; 85027; 85610; 85730; 87086

== ENCOUNTER 2023-01-26 07:20 | Day surgery (SDC) | payer SELFPAY ==
[2023-01-26] MEDS ORDERED: Levofloxacin 500 mg/D5W 100 ml Premix Bag ONE (09:38)
[2023-01-26] MEDS ORDERED: Iopamidol 30 ML ONE (10:16)
[2023-01-26] MEDS ORDERED: SUGAMMADEX SODIUM 200 MG/2 ML VIAL ONE (10:21)
[2023-01-26] MEDS ORDERED: Fentanyl 250 MCG/5 ML VIAL ONE (10:21)
[2023-01-26] MEDS ORDERED: Famotidine/PF 20 mg/2ml Vial ONE (10:21)
[2023-01-26] MEDS ORDERED: Meperidine HCl/PF 25 MG/ML VIAL ONE (10:21)
[2023-01-26] MEDS ORDERED: Ketorolac Tromethamine 30 MG/ML VIAL ONE (10:39)
[2023-01-26] MEDS ORDERED: Metoclopramide HCl 10 MG/2 ML VIAL ONE (10:39)
[2023-01-26] MEDS ORDERED: Rocuronium Bromide 10 MG/ML (10ML VIAL) ONE (10:39)
[2023-01-26] MEDS ORDERED: PROPOFOL 200 MG/20 ML VIAL ONE (10:39)
[2023-01-26] MEDS ORDERED: Lidocaine 1% PF 5 ML VIAL ONE (10:39)
[2023-01-26] MEDS ORDERED: Dexamethasone 20 MG/5 ML VIAL ONE (10:39)
[2023-01-26] MEDS ORDERED: Ondansetron PF 4 MG/2 ML Vial ONE ×2 (10:39→13:25)
[2023-01-26] MEDS ORDERED: Phenazopyridine HCl 100 MG TAB ONE ×2 (12:50)
[2023-01-26] MEDS ORDERED: Oxybutynin 5 MG TAB ONE (12:50)
[2023-01-26] MEDS ORDERED: fentaNYL 50 mcg/mL 1 mL Vial ONE (13:23)
== END 2023-01-26 14:30 | disposition home or self-care (01) ==
LOC: SDC 07:20
PROVIDERS: ATTEND Urology
PROC: 0T768DZ Dilation of Right Ureter with Intraluminal Device, Via Natural or Artificial Opening Endoscopic (ICD-10-PCS; principal; 2023-01-26)
PROC: 0TC38ZZ Extirpation of Matter from Right Kidney Pelvis, Via Natural or Artificial Opening Endoscopic (ICD-10-PCS; principal; 2023-01-26)
DX: N20.0 Calculus of kidney (principal); F17.200 Nicotine dependence, unspecified, uncomplicated; Z88.0 Allergy status to penicillin; Z91.018 Allergy to other foods
CPT/HCPCS: 74018; 74420; C1747; C1769; C2617; J1100; J1885; J1956; J2175; J2405; J2704; J2765; J3010; Q9967; S0028

== ENCOUNTER 2023-02-03 10:37 | Outpatient (CLI) | payer OTHER ==
[2023-02-03 12:45] LABS: Anion Gap 15 mmol/L (10-20); BUN (Urea Nitrogen) 20 mg/dL (8.9-20.6); Calc. Creatinine Clearance 0 mL/min (70-130); Calcium 9.8 mg/dL (7.8-10.44); Carbon Dioxide 27 mmol/L (22-29); Chloride 102 mmol/L (98-107); Estimated GFR 96; Glucose 93 mg/dL (70-105); PTT 26.9 sec (22.0-33.0); Potassium 5.2 mmol/L (3.5-5.1); Prothrombin Time 10.3 sec (9.5-12.1); Sodium 139 mmol/L (136-145)
[2023-02-03 12:47] LABS: Hemoglobin 15.3 g/dL (13.5-17.5); Mean Corpuscular HGB CONC 32.6 g/dL (32.0-36.0); Mean Corpuscular Hemoglobin 28.7 pg (27.0-33.0); Mean Corpuscular Volume 87.8 fl (81.2-95.1); Mean Platelet Volume 9.6 fl (7.4-10.4); Platelet Count 351 10x3/uL (150-450); RBC Distribution Width 12.7 % (11.5-14.5); Red Blood Cell (RBC) Count 5.34 10x6/uL (4.32-5.72); White Blood Cell (WBC) Count 9.1 10x3/uL (3.5-10.5)
== END 2023-02-03 10:38 | disposition home or self-care (01) ==
LOC: LABBT 10:37
PROVIDERS: ATTEND Urology
DX: Z01.812 Encounter for preprocedural laboratory examination (principal); N20.0 Calculus of kidney
CPT/HCPCS: 80048; 85027; 85610; 85730

== ENCOUNTER 2023-02-07 06:34 | Day surgery (SDC) | payer SELFPAY ==
[2023-02-04 14:19] VITALS: BMI 29.4
[2023-02-07] MEDS ORDERED: Levofloxacin 500 mg/D5W 100 ml Premix Bag ONE (07:18)
[2023-02-07] MEDS ORDERED: fentaNYL PF 100 MCG/2 ML SYRINGE ONE (09:09)
[2023-02-07] MEDS ORDERED: NEOSTIGMINE 3 MG/3 ML SYR 3 MG/3 ML SYRINGE ONE (09:18)
[2023-02-07] MEDS ORDERED: Rocuronium Bromide 10 MG/ML (10ML VIAL) ONE (09:18)
[2023-02-07] MEDS ORDERED: PROPOFOL 200 MG/20 ML VIAL ONE (09:18)
[2023-02-07] MEDS ORDERED: GLYCOPYRROLATE/PF 0.2 MG/ML VIAL ONE (09:18)
[2023-02-07] MEDS ORDERED: Iopamidol 15 ML ONE (09:18)
[2023-02-07] MEDS ORDERED: Ondansetron PF 4 MG/2 ML Vial ONE (09:18)
[2023-02-07] MEDS ORDERED: Lidocaine 1% PF 5 ML VIAL ONE (09:18)
[2023-02-07] MEDS ORDERED: Ketorolac Tromethamine 30 MG/ML VIAL ONE (09:18)
[2023-02-07] MEDS ORDERED: Dexamethasone 20 MG/5 ML VIAL ONE (09:18)
[2023-02-07] MEDS ORDERED: Phenazopyridine HCl 100 MG TAB ONE (11:57)
[2023-02-07] MEDS ORDERED: Oxybutynin 5 MG TAB ONE (11:58)
[2023-02-07] MEDS ORDERED: Tamsulosin HCl 0.4 MG CAP ONE (11:58)
[2023-02-07] MEDS ORDERED: fentaNYL 50 mcg/mL 1 mL Vial ONE ×3 (12:12→13:04)
[2023-02-07] MEDS ORDERED: HYDROcodone/Acetaminophen 5/325 mg Tablet ONE (13:48)
== END 2023-02-07 14:20 | disposition home or self-care (01) ==
LOC: SDC 06:34
PROVIDERS: ATTEND Urology
PROC: 0T768DZ Dilation of Right Ureter with Intraluminal Device, Via Natural or Artificial Opening Endoscopic (ICD-10-PCS; principal; 2023-02-07)
PROC: 0TC08ZZ Extirpation of Matter from Right Kidney, Via Natural or Artificial Opening Endoscopic (ICD-10-PCS; principal; 2023-02-07)
DX: N20.2 Calculus of kidney with calculus of ureter (principal); A63.0 Anogenital (venereal) warts; F17.200 Nicotine dependence, unspecified, uncomplicated; I10 Essential (primary) hypertension; Z88.0 Allergy status to penicillin; Z91.018 Allergy to other foods
CPT/HCPCS: 74018; 74420; 82365; 88300; C1747; C1769; C2617; J1100; J1885; J1956; J2405; J2704; J3010; J3490; Q9967

== ENCOUNTER 2023-02-17 09:46 | Outpatient (CLI) | payer OTHER ==
[2023-02-17 11:02] LABS: Hemoglobin 14.7 g/dL (13.5-17.5); Mean Corpuscular HGB CONC 33.2 g/dL (32.0-36.0); Mean Corpuscular Hemoglobin 28.9 pg (27.0-33.0); Mean Platelet Volume 10.5 fl (7.4-10.4); Platelet Count 320 10x3/uL (150-450); RBC Distribution Width 12.5 % (11.5-14.5); Red Blood Cell (RBC) Count 5.09 10x6/uL (4.32-5.72); White Blood Cell (WBC) Count 9.1 10x3/uL (3.5-10.5)
[2023-02-17 11:21] LABS: Prothrombin Time 10.4 sec (9.5-12.1)
[2023-02-17 11:22] LABS: Anion Gap 16 mmol/L (10-20); BUN (Urea Nitrogen) 18 mg/dL (8.9-20.6); Calc. Creatinine Clearance 0 mL/min (70-130); Calcium 8.9 mg/dL (7.8-10.44); Carbon Dioxide 23 mmol/L (22-29); Chloride 106 mmol/L (98-107); Estimated GFR 94; Glucose 97 mg/dL (70-105); Potassium 4.5 mmol/L (3.5-5.1); Sodium 140 mmol/L (136-145)
== END 2023-02-17 09:47 | disposition home or self-care (01) ==
LOC: LABBT 09:46
PROVIDERS: ATTEND Urology
DX: Z01.812 Encounter for preprocedural laboratory examination (principal); N20.0 Calculus of kidney; N20.1 Calculus of ureter; N48.9 Disorder of penis, unspecified; K59.01 Slow transit constipation; Z72.0 Tobacco use; Z98.890 Other specified postprocedural states
CPT/HCPCS: 80048; 85027; 85610; 85730

== ENCOUNTER 2023-02-23 08:23 | Day surgery (SDC) | payer SELFPAY ==
[2023-02-17 10:41] VITALS: BMI 29.2
[2023-02-23] MEDS ORDERED: Iopamidol 30 ML ONE (09:58)
[2023-02-23] MEDS ORDERED: SUGAMMADEX SODIUM 200 MG/2 ML VIAL ONE (10:03)
[2023-02-23] MEDS ORDERED: fentaNYL 50 mcg/mL 1 mL Vial ONE ×3 (10:03→11:38)
[2023-02-23] MEDS ORDERED: Ondansetron PF 4 MG/2 ML Vial ONE ×2 (10:03→10:24)
[2023-02-23] MEDS ORDERED: Famotidine/PF 20 mg/2ml Vial ONE (10:03)
[2023-02-23] MEDS ORDERED: Levofloxacin 500 mg/D5W 100 ml Premix Bag ONE (10:04)
[2023-02-23] MEDS ORDERED: Lidocaine 1% PF 5 ML VIAL ONE (10:24)
[2023-02-23] MEDS ORDERED: PROPOFOL 200 MG/20 ML VIAL ONE (10:24)
[2023-02-23] MEDS ORDERED: Metoclopramide HCl 10 MG/2 ML VIAL ONE (10:24)
[2023-02-23] MEDS ORDERED: Rocuronium Bromide 10 MG/ML (10ML VIAL) ONE (10:24)
[2023-02-23] MEDS ORDERED: Ketorolac Tromethamine 30 MG/ML VIAL ONE (10:24)
[2023-02-23] MEDS ORDERED: Phenazopyridine HCl 100 MG TAB ONE (11:38)
[2023-02-23] MEDS ORDERED: Oxybutynin 5 MG TAB ONE (11:39)
== END 2023-02-23 12:30 | disposition home or self-care (01) ==
LOC: SDC 08:23
PROVIDERS: ATTEND Urology
DX: N20.0 Calculus of kidney (principal); I10 Essential (primary) hypertension; F17.200 Nicotine dependence, unspecified, uncomplicated; Z79.899 Other long term (current) drug therapy; Z88.0 Allergy status to penicillin; Z91.018 Allergy to other foods
CPT/HCPCS: 74018; 74420; C1747; C1769; C2617; J1885; J1956; J2405; J2704; J2765; J3010; Q9967; S0028

== ENCOUNTER 2023-06-01 13:26 | Outpatient (CLI) | payer OTHER | END 2023-06-01 13:27 | disposition home or self-care (01) | LOC: RAD 13:26 | PROVIDERS: ATTEND Urology | DX: N20.0 Calculus of kidney (principal); Z98.890 Other specified postprocedural states | CPT/HCPCS: 74018 ==

== ENCOUNTER 2023-09-08 11:32 | Emergency (ER) | payer OTHER ==
[2023-09-08 12:45] LABS: #Basophils 0.1 thou/uL (0.0-0.2); #Eosinphils 0.9 thou/uL (0.0-0.7); #Monocytes 0.6 thou/uL (0.11-0.59); #Neutrophils 4.4 thou/uL (1.40-6.50); %Basophils 0.7 % (0.0-1.0); %Eosinophils 9.2 % (0.0-10.0); %Lymphocytes 39.1 % (21.0-51.0); %Neutrophils 44.6 % (42.0-75.0); Hematocrit 51.2 % (42.0-52.0); Hemoglobin 17.3 g/dL (14.0-18.0); Mean Corpuscular HGB CONC 33.8 g/dL (32.0-36.0); Mean Corpuscular Hemoglobin 29.6 pg (27.0-31.0); Mean Corpuscular Volume 87.7 fl (78.0-98.0); Mean Platelet Volume 9.9 fL (7.4-10.4); Platelet Count 294 10x3/uL (130-400); RBC Distribution Width 12.3 % (11.5-14.5); Red Blood Cell (RBC) Count 5.84 mill/uL (4.70-6.10); White Blood Cell (WBC) Count 9.9 10x3/uL (4.8-10.8)
[2023-09-08 13:02] LABS: ALT (SGPT) 50 U/L (8-55); AST (SGOT) 23 U/L (5-34); Albumin 4.8 g/dL (3.5-5.0); Alkaline Phosphatase 91 U/L (40-110); Anion Gap 15 mmol/L (10-20); BUN (Urea Nitrogen) 16 mg/dL (8.9-20.6); Bilirubin, Total 0.4 mg/dL (0.2-1.2); Calc. Creatinine Clearance 0 mL/min (70-130); Carbon Dioxide 26 mmol/L (22-29); Chloride 101 mmol/L (98-107); Estimated GFR 82; Glucose 138 mg/dL (70-105); Lipase 20 U/L (8-78); Potassium 4.3 mmol/L (3.5-5.1); Protein, Total 7.8 g/dL (6.0-8.3); Sodium 138 mmol/L (136-145)
[2023-09-08] MEDS ORDERED: Ketorolac Tromethamine 30 MG/ML VIAL ONE (13:11)
[2023-09-08] MEDS ORDERED: Ondansetron PF 4 MG/2 ML Vial ONE (13:11)
[2023-09-08 16:47] LABS: Bacteria/HPF None Seen HPF (None Seen); Bilirubin Negative (Negative); Blood, Urine Negative (Negative); CAUTI Indications for Culture Pelvic or flank pain; Clarity Clear (Clear); Glucose, Urine (Dipstick) Normal (Negative); Ketone, Urine Negative (Negative); Leukocyte Negative Leu/uL (Negative); Nitrite Negative (Negative); Protein, Urine (Dipstick) Negative (Neg-Trace); RBC/HPF 0-3 HPF (0-3); Specific Gravity, Urine 1.023 (1.002-1.036); Squamous Epithelial None Seen HPF (0-3); Urobilinogen Normal mg/dL (Less than 2); pH, Urine 5.5 (5.0-9.0)
[2023-09-08 16:52] LABS: Urine Culture Reflex No No
== END 2023-09-08 16:28 | disposition home or self-care (01) ==
LOC: ERS 11:32
DX: R10.9 Unspecified abdominal pain (principal); Z87.891 Personal history of nicotine dependence
CPT/HCPCS: 36415; 74176; 80053; 81001; 83690; 85025; 96374; 96375; J1885; J2405